=== PATIENT | female | born 2000 | race Hispanic/Latino ===

== ENCOUNTER 2019-08-25 01:39 | Outpatient (CLI) | payer MEDICAID ==
[2019-08-25 03:23] VITALS: BP 114/65
--- NOTE | 2019-08-25 04:01 | Progress Note ---
Assessment and Plan - Patient Problems (1) Prolonged latent phase of labor Current Visit: Yes Status: Acute Plan to address problem: -keep scheduled apt -labor precautions given -schedule IOL -d/c home at this time Subjective - Subjective Date of service: 08/25/19 Principal diagnosis: term r/o labor Interval history: Pt presents c/o sharp pelvic pain unsure if she is christen or not. cx is unchanged from last office visit at /-2 post. She is having occasional contractions. Patient reports: movement normal, contractions, no loss of fluid, no vaginal bleeding Objective - Vital Signs Vital Signs: Vital Signs - 12hr 08/25/19 08/25/19 08/25/19 02:08 02:23 02:50 Temperature 97.8 F Pulse Rate 78 78 88 Respiratory 16 Rate Blood Pressure 109/59 Blood Pressure 109/59 [Left] O2 Sat by Pulse 98 95 Oximetry 08/25/19 08/25/19 08/25/19 02:55 03:00 03:05 Temperature Pulse Rate 77 81 84 Respiratory Rate Blood Pressure Blood Pressure [Left] O2 Sat by Pulse 97 97 99 Oximetry 08/25/19 08/25/19 08/25/19 03:10 03:15 03:20 Temperature Pulse Rate 88 82 79 Respiratory Rate Blood Pressure Blood Pressure [Left] O2 Sat by Pulse 97 97 95 Oximetry 08/25/19 08/25/19 08/25/19 03:21 03:25 03:30 Temperature Pulse Rate 80 85 81 Respiratory Rate Blood Pressure 114/65 Blood Pressure [Left] O2 Sat by Pulse 97 97 Oximetry 08/25/19 08/25/19 08/25/19 03:35 03:40 03:45 Temperature Pulse Rate 72 78 88 Respiratory Rate Blood Pressure Blood Pressure [Left] O2 Sat by Pulse 97 97 100 Oximetry - Exam FHR: category 1 Cervical Dilatation: 4 (cx is very posterior but soft) Cervical Effacement Percentage: 70 station: -2
== END 2019-08-25 04:05 | disposition home or self-care (01) ==
LOC: TRG 01:39
PROVIDERS: ATTEND Obstetrics & Gynecology
DX: O62.9 Abnormality of forces of labor, unspecified (principal); Z3A.40 40 weeks gestation of pregnancy
CPT/HCPCS: 59025

== ENCOUNTER 2019-08-26 20:38 | Inpatient (IN) | payer MEDICAID ==
[2019-08-26] MEDS ORDERED: BRETHINE SUB-Q PRN (21:20)
[2019-08-26] MEDS ORDERED: MINERAL OIL PO PRN (21:20)
[2019-08-26] MEDS ORDERED: AMPICILLIN/NS 2 GM/100 ML 2 GM/100 ML BAG IV ONE (21:20)
[2019-08-26] MEDS ORDERED: ZOFRAN IV PRN (21:20)
[2019-08-26] MEDS ORDERED: XYLOCAINE 2% INFILTRATI ONE (21:20)
[2019-08-26] MEDS ORDERED: AMBIEN PO PRN (21:22)
--- NOTE | 2019-08-26 21:28 | History and Physical Report ---
<JUAN WATTS Roge - Last Filed: 08/26/19 21:23> History of Present Illness Date of examination: 08/26/19 Date of admission: 08/26/19 20:38 Chief complaint: Pt here for IOL History of present illness: EDC Calculations by LMP: 08/24/2019 Past History : 1 Term Births: 0 Premature Births: 0 Living Children: 0 Para: 0 Mult. Births: 0 Prev : 0 Aborta: 0 Elect. Ab: 0 Spont. Ab: 0 Ectopics: 0 Risk Factors: Smoked Tobacco Use: Former smoker Smokeless Tobacco Use: Never Passive smoke exposure: no Drug use: no HIV high-risk behavior: no Alcohol use: no Exercise: no Seatbelt use: 100 % Dietary Counseling: pn yes Past Medical History: asthma since childhood; uses albuterol inhaler Asthma Past Surgical History: negative Past Medical History Anesthesia Complications: negative Anemia: negative Autoimmune Disorder: negative Bleeding Disorder: negative Blood Transfusions: negative Breast Disease: negative Diabetes: negative Heart Disease: negative Hypertension: negative Hepatitis/Liver Disease: negative Kidney Disease/UTI: negative Neurologic/Epilepsy/Migraines: negative Phlebitis/Varicosities: negative Psychiatric: negative Pulmonary Disease/Asthma: negative Thyroid Disease: negative Hospitalizations: negative Surgery (Non-medical assistant ob gyn): negative Abnormal PAP: negative LEDY Exposure: negative Infertility: negative Uterine Anomaly: negative Uterine Surgery (not C/S): negative Other Gynecologic Problems: negative Medical History Comments: asthma: since childhood Family Hx: dad: HTN paternal grandmother: stroke, HTN maternal grandmother: breast Ca Social Hx: works as stylist Infection History Hx of STD: HSV HIV Risk Eval: no Hepatitis B Risk Eval: low risk Personal hx. of genital herpes: yes Rash, Viral, or Febrile illness since last LMP? no Varicella/Chicken Pox Status: Previous Disease TB Risk: no Genetic History Congenital Heart Defect: Mom: no Dad: no Jihan Disease: Mom: no Dad: no Thalassemia Mom: no Dad: no Neural Tube Defect Mom: no Dad: no Down's Syndrome Mom: no Dad: no Robert-Sachs Mom: no Dad: no Sickle Cell Disease/Trait Mom: no Dad: no Hemophilia Mom: no Dad: no Muscular Dystrophy Mom: no Dad: no Cystic Fibrosis Mom: no Dad: no [place] Chorea Mom: no Dad: no Mental Retardation Mom: no Dad: no Fragile X Mom: no Dad: no Other Genetic/Chromosomal Disorder Mom: no Dad: no Child w/other defect Mom: no Dad: no Enviromental Exposures Xray Exposure: no Medication, drug, or alcohol use since LMP: no Chemical/Other Exposure: no Exposure to Cat Liter: no Hx of Parvovirus (Fifth Disease): no Occupational Exposure to Children: none Active Medications: None Current Allergies (reviewed today): No known allergies Past History Past Medical History: other (s) Past Surgical History: other (s) GROUNDSKEEPER SUPERVISOR History: other (see HPI) Family/Genetic History: other (see HPI) Social history: no significant social history - Obstetrical History Expected Date of Delivery: 08/24/19 Actual Gestation: 40 Week(s) 2 Day(s) : 1 Para: 0 Hx # Term Pregnancies: 0 Number of Pregnancies: 0 Spontaneous Abortions: 0 Induced : 0 Number of Living Children: 0 Medications and Allergies Allergies Allergy/AdvReac Type Severity Reaction Status Date / Time No Known Allergies Allergy Verified 08/25/19 02:25 Review of Systems All systems: negative Results All other labs normal. Assessment and Plan 19y/o here for IOL, GBS +. Plan for low dose pitocin tonight. Admission orders in EMR. EFRAIN Escobedo called and reviewed orders, All questions addressed. - Patient Problems (1) 40 weeks gestation of Current Visit: Yes Status: Acute (2) GBS (group B Streptococcus carrier), +RV culture, currently Current Visit: Yes Status: Acute Plan to address problem: Ampicillin q4hr when in active labor (3) Rh negative status during Current Visit: Yes Status: Acute Qualifiers: Trimester: third trimester Qualified Code(s): O26.893 - Other specified related conditions, third trimester; Z67.91 - Unspecified blood type, Rh negative Plan to address problem: Rhogam workup after delivery <LAMONTE ANSARI - Last Filed: 08/27/19 05:37> History of Present Illness Date of admission: 08/26/19 20:38 Medications and Allergies Active Meds: Active Medications Ephedrine Sulfate (Ephedrine Sulfate) 10 mg IV Q2M PRN PRN Reason: Hypotension Oxytocin/Sodium Chloride (Pitocin/Ns 20 Unit/1000ml Drip) 20 units in 1,000 mls @ 125 mls/hr IV DIRECT HAMZAH Oxytocin/Sodium Chloride (Pitocin/Ns 30 Unit/500ml) 30 units in 500 mls @ 1 mls/hr IV TITR HAMZAH; Protocol Last Titration: 08/27/19 04:54 Dose: 1 milliunits/min, 1 mls/hr Documented by: Oxytocin/Sodium Chloride (Pitocin/Ns 30 Unit/500ml) 30 units in 500 mls @ 4 m ls/hr IV TITR HAMZAH; Protocol Lactated Ringer's (Lactated Ringers) 1,000 mls @ 125 mls/hr IV DIRECT HAMZAH Last Admin: 08/27/19 03:58 Dose: 125 mls/hr Documented by: Ampicillin Sodium (Ampicillin/Ns 1 Gm/50 Ml) 1 gm in 50 mls @ 100 mls/hr IV Q4HR HAMZAH; Protocol Last Admin: 08/27/19 03:58 Dose: 100 mls/hr Documented by: Mineral Oil (Mineral Oil) 30 ml PO QHS PRN PRN Reason: Constipation Ondansetron HCl (Zofran) 4 mg IV Q8H PRN PRN Reason: Nausea And Vomiting Terbutaline Sulfate (Brethine) 0.25 mg SUB-Q ONCE PRN PRN Reason: Hyperstimulation/Hypertonicity Zolpidem Tartrate (Ambien) 10 mg PO QHS PRN PRN Reason: Insomnia - Vital Signs Vital signs: Vital Signs Pulse BP 86 124/77 08/26/19 21:29 08/26/19 21:29 Temp Pulse Resp BP Pulse Ox 98 F 65 18 111/61 08/27/19 04:00 08/27/19 04:01 08/27/19 04:00 08/27/19 04:01 - Physical Exam Breasts: Positive: deferred Cardiovascular: Regular rate, Normal S1, Normal S2 Lungs: Positive: Normal air movement Abdomen: Positive: normal appearance, soft, normal bowel sounds. Negative: distention, tenderness Genitourinary (Female): Positive: normal perenium Vulva: both: normal Vagina: Positive: normal moisture. Negative: discharge Cervix: Negative: lesion, discharge Uterus: Positive: normal size, normal contour Adnexa: both: normal Anus/Rectum: Positive: normal perianal skin, heme negative. Negative: rectal mass, hemorrhoids Extremities: Positive: normal Deep Tendon Reflex Grade: Normal +2 - Obstetrical FHR: category 1 Uterine Contraction Monitor Mode: External Cervical Dilatation: 4 (per RN on arrival) Cervical Effacement Percentage: 60 station: -1 Uterine Contraction Pattern: Irregular Uterine Tone Measurement Phase: Resting Uterine Contraction Intensity: Mild Results Result Diagrams: 08/26/19 22:19 Abnormal lab results 08/26/19 Range/Units 22:19 WBC 12.6 H (4.5-11.0) K/mm3 MCHC 35 H (30-34) % All other labs normal.
[2019-08-26] MEDS ORDERED: PITOCin/NS 30 UNIT/500ML 30 UNITS/500 ML BAG IV SCH (22:00)
[2019-08-26] MEDS ORDERED: PITOCin/NS 20 UNIT/1000ML DRIP 20 UNITS/1,000 ML BAG IV SCH (22:00)
[2019-08-26 22:37] LABS: Hematocrit 36.9 % (30.3-42.9); Hemoglobin 12.8 gm/dl (10.1-14.3); Mean Corpuscular HGB Conc 35 % (30-34); Mean Corpuscular Volume 91 fl (79-97); Platelet Count 152 K/mm3 (140-440); Red Blood Count 4.07 M/mm3 (3.65-5.03); Red Cell Distribution Width 14.2 % (13.2-15.2)
[2019-08-26] MEDS: LACTATED RINGERS 1,000 ML IV SCH (23:32)
[2019-08-27] MEDS: AMPICILLIN/NS 1 GM/50 ML 1 GM/50 ML BAG IV SCH ×2 (03:58→08:03)
[2019-08-27] MEDS: LACTATED RINGERS 1,000 ML IV SCH (03:58)
--- NOTE | 2019-08-27 05:36 | Progress Note ---
Assessment and Plan Pt c/o hip pain Reports good FM SVE 5,70,0 ISE applied fluid slight staining will monitor. Bolus for epidural Increase pitocin per protocol All questions addressed. Subjective - Subjective Date of service: 08/27/19 (pt c/o hip pain) Principal diagnosis: IUP @ 40w3d Patient reports: movement normal Objective - Vital Signs Vital Signs: Vital Signs - 12hr 08/26/19 08/26/19 08/27/19 21:29 21:37 04:00 Temperature 98.3 F 98 F Pulse Rate 86 86 Respiratory 18 18 Rate Blood Pressure 124/77 Blood Pressure 124/77 [Left] 08/27/19 04:01 Temperature Pulse Rate 65 Respiratory Rate Blood Pressure 111/61 Blood Pressure [Left] - Exam Breasts: deferred Cardiovascular: Regular rate Lungs: Normal air movement Abdomen: Present: normal appearance, soft. Absent: distention, tenderness Uterus: Present: normal FHR: auscultation normal, category 1 Uterine Contraction Monitor Mode: Internal Cervical Dilatation: 5 (ISE applied) Cervical Effacement Percentage: 70 station: 0 Uterine Contraction Pattern: Irregular Uterine Tone Measurement Phase: Resting Uterine Contraction Intensity: Mild Extremities: normal Deep Tendon Reflex Grade: Normal +2 - Labs Labs: Abnormal Labs 08/26/19 22:19 WBC 12.6 H MCHC 35 H Laboratory Results - last 24 hr 08/26/19 08/26/19 08/26/19 22:19 22:19 22:20 WBC 12.6 H RBC 4.07 Hgb 12.8 Hct 36.9 MCV 91 MCH 32 MCHC 35 H RDW 14.2 Plt Count 152 Syphilis IgG Antibody Non-reactive Blood Type O NEGATIVE Antibody Screen Negative
[2019-08-27] MEDS ORDERED: PITOCin/NS 30 UNIT/500ML 30 UNITS/500 ML BAG IV SCH ×2 (06:00)
[2019-08-27] MEDS ORDERED: MARCAINE 0.25% INFILTRATI ONE (06:45)
[2019-08-27] MEDS ORDERED: NALOXONE IV PRN (06:53)
--- NOTE | 2019-08-27 06:55 | Anesthesia Consultation ---
Anesthesia Consult and Med Hx Date of service: 08/27/19 - Airway Anesthetic Teeth Evaluation: Good ROM Head & Neck: Adequate Mental/Hyoid Distance: Adequate Mallampati Class: Class II Intubation Access Assessment: Probably Good - Pulmonary Exam CTA: Yes - Cardiac Exam Cardiac Exam: RRR - Pre-Operative Health Status ASA Pre-Surgery Classification: ASA2 Proposed Anesthetic Plan: Epidural - Pulmonary Hx Smoking: No Hx Asthma: Yes (last attach many years ago) Hx Respiratory Symptoms: No SOB: No COPD: No Hx Pneumonia: No Hx Sleep Apnea: No - Cardiovascular System Hx Hypertension: No Hx Coronary Artery Disease: No Hx Heart Attack/AMI: No Hx Angina: No Hx Percutaneous Transluminal Coronary Angioplasty (PTCA): No Hx Cardia Arrhythmia: No Hx Pacemaker: No Hx Internal Defibrillator: No Hx Valvular Heart Disease: No Hx Heart Murmur: No Hx Peripheral Vascular Disease: No - Central Nervous System Hx Neuromuscular Disorder: No Hx Seizures: No CVA: No Hx Back Pain: No Hx Psychiatric Problems: No - Gastrointestinal Hx Ulcer: No Hx Gastroesophageal Reflux Disease: No - Endocrine Hx Renal Disease: No Hx End Stage Renal Disease: No Hx Cirrhosis: No Hx Liver Disease: No Hx Insulin Dependent Diabetes: No Hx Non-Insulin Dependent Diabetes: No Hx Thyroid Disease: No Hx Hypothyroidism: No Hx Hyperthyroidism: No - Hematic Hx Anemia: No Hx Sickle Cell Disease: No - Other Systems Hx Alcohol Use: No Hx Substance Use: No Hx Cancer: No Hx Obesity: No
[2019-08-27] MEDS ORDERED: fentaNYL-BUPIV 2 MCG/ML-0.125% 200 MCG/100 ML BAG EPIDURAL SCH (07:00)
[2019-08-27] MEDS ORDERED: PEPCID IV ONE (07:30)
[2019-08-27] MEDS ORDERED: CYTOTEC PR SCH (11:30)
[2019-08-27] MEDS ORDERED: CYTOTEC ONE ×2 (11:37→11:42)
[2019-08-27] MEDS ORDERED: NACL 0.9% 500 ML 500 ML IV SCH ×2 (11:47→16:00)
[2019-08-27] MEDS ORDERED: DULCOLAX PR PRN (12:22)
[2019-08-27] MEDS ORDERED: PHENERGAN PO PRN (12:22)
[2019-08-27] MEDS ORDERED: BENADRYL PO PRN (12:22)
[2019-08-27] MEDS ORDERED: TYLENOL PO PRN (12:22)
[2019-08-27] MEDS ORDERED: MILK OF MAGNESIA PO PRN (12:22)
[2019-08-27] MEDS ORDERED: LANSINOH TP PRN (12:22)
[2019-08-27] MEDS ORDERED: TUCKS PAD TP PRN (12:22)
--- NOTE | 2019-08-27 12:29 | Procedure Note ---
OB Delivery Note - Delivery Date of Delivery: 08/27/19 Recreation Assistant: LAMONTE ANSARI Estimated blood loss: other (1200) - Vaginal Delivery presentation: vertex Delivery position: OA Intrapartum events: hemorrhage (manual removal of placenta) Delivery induction: oxytocin Delivery augmentation: pitocin Delivery monitor: external uterine, internal FHT Route of delivery: Delivery placenta: manual, uterine exploration Delivery cord: 3 umbilical vessels Episiotomy: none Delivery laceration: none Anesthesia: epidural Delivery comments: live born female over intact perineum. Baby to mom's abdomen skin to skin. Delayed cord clamping. Noted large gush of blood prior to clamping cord. Pitocin IVFs.Cord blood obtained.. Again mod bleeding noted w/o release of placenta. Uterus explored. Fundal placenta manual removal with difficulty. Bleeding continued during removal. notified. Stat H&H drawn. Type & hold 2 units. Placenta removed Noted to be in 2 pieces Appears to be complete. Cytotec 1000mcg placed MS. Perineum, vagina, cervix intact. uterus explored again. Hemostasis achieved. Pt symptomatic BP 80/40, nausea, pale. Rutherford placed. Fundus firm, minimal lochia. Explained situation of PPH to pt and family All questions addressed. , 8/9, Wgt 8-4. EBL 1200. Pt reassessed FF, @ umb, Lochia small. Pt is alert and oriented, BP 118/60 Asking to hold NB. Will continue observation in LDR. - Infant A at 1 minute: 8 at 5 minutes: 9 Infant Gender: Female (wgt 8-4)
[2019-08-27 12:32] LABS: Hemoglobin 11.8 gm/dl (10.1-14.3)
[2019-08-27] MEDS ORDERED: SODIUM CHLORIDE FLUSH SYRINGE 10 ML IV SCH (13:00)
[2019-08-27] MEDS ORDERED: METHERGINE PO SCH (14:00)
[2019-08-27] MEDS ORDERED: BENADRYL PO NR (15:08)
[2019-08-27] MEDS ORDERED: TYLENOL PO ONE (15:08)
--- NOTE | 2019-08-27 15:11 | Event Note ---
Date: 08/27/19 (call from RN) Pt OOB to toilet fainted. Will move forward with transfusion of 2 units PRC. made aware
[2019-08-27 16:07] LABS: Hematocrit 25.7 % (30.3-42.9); Hemoglobin 8.8 gm/dl (10.1-14.3)
[2019-08-27] MEDS: FEOSOL PO SCH (18:20)
[2019-08-27] MEDS: IBUPROFEN PO SCH (18:20)
[2019-08-27] MEDS ORDERED: NORCO 5/325 PO ONE (20:00)
[2019-08-27] MEDS ORDERED: NORCO 5/325 PO PRN (20:13)
--- NOTE | 2019-08-27 20:22 | Event Note ---
Date: 08/27/19 (called to come see pt by RN) There were 8-10 visitors in pts room on my arrival I did ask that they leave for the evening. Very cooperative. Pt states she has a lot of pressure in her rectum and that her lower abdomen "really hurts". Pt examined no evidence of hematoma noted on vaginal floor or harris. Bleeding slow trickle resolved with massage FF below umb off set to the right. Reading 2 tabs po Q6hr prn pain. Will continue close observation. Blood is transfusing. All questions addressed.
[2019-08-28 03:52] LABS: Hematocrit 29.4 % (30.3-42.9); Hemoglobin 10.1 gm/dl (10.1-14.3)
[2019-08-28] MEDS: FEOSOL PO SCH ×4 (05:44→22:02)
[2019-08-28] MEDS: IBUPROFEN PO SCH ×4 (05:44→22:04)
[2019-08-28] MEDS ORDERED: BOOSTRIX IM ONE (06:00)
--- NOTE | 2019-08-28 08:15 | Progress Note ---
Assessment and Plan - Patient Problems (1) Rh negative status during Current Visit: Yes Status: Acute Qualifiers: Trimester: third trimester Qualified Code(s): O26.893 - Other specified related conditions, third trimester; Z67.91 - Unspecified blood type, Rh negative (2) hemorrhage Current Visit: Yes Status: Acute Plan to address problem: 2 PRBCs transfused on 08/27/19. Post transfusion H/H 09/02. VSS. Pt is ambulating without difficulty. (3) Spontaneous vaginal delivery Current Visit: Yes Status: Acute Plan to address problem: Pt resting in bed quietly. Reports lower ABD and back pain managed with pain med. VSSAF. Fundus firm at U. Moderate vaginal bleeding. Bottle feeding. Baby O negative; no Rhogam needed PP. P: Continue PP pathway. Subjective - Subjective Date of service: 08/28/19 Principal diagnosis: Day#1 Interval history: EDC Calculations by LMP: 08/24/2019 Past History : 1 Term Births: 0 Premature Births: 0 Living Children: 0 Para: 0 Mult. Births: 0 Prev : 0 Aborta: 0 Elect. Ab: 0 Spont. Ab: 0 Ectopics: 0 Risk Factors: Smoked Tobacco Use: Former smoker Smokeless Tobacco Use: Never Passive smoke exposure: no Drug use: no HIV high-risk behavior: no Alcohol use: no Exercise: no Seatbelt use: 100 % Dietary Counseling: pn yes Past Medical History: asthma since childhood; uses albuterol inhaler Asthma Past Surgical History: negative Past Medical History Anesthesia Complications: negative Anemia: negative Autoimmune Disorder: negative Bleeding Disorder: negative Blood Transfusions: negative Breast Disease: negative Diabetes: negative Heart Disease: negative Hypertension: negative Hepatitis/Liver Disease: negative Kidney Disease/UTI: negative Neurologic/Epilepsy/Migraines: negative Phlebitis/Varicosities: negative Psychiatric: negative Pulmonary Disease/Asthma: negative Thyroid Disease: negative Hospitalizations: negative 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 of genital herpes: yes Rash, Viral, or Febrile illness since last LMP? no Varicella/Chicken Pox Status: Previous Disease TB Risk: no Genetic History Congenital Heart Defect: Mom: no Dad: no Jihan Disease: Mom: no Dad: no Thalassemia Mom: no Dad: no Neural Tube Defect Mom: no Dad: no Down's Syndrome Mom: no Dad: no Robert-Sachs Mom: no Dad: no Sickle Cell Disease/Trait Mom: no Dad: no Hemophilia Mom: no Dad: no Muscular Dystrophy Mom: no Dad: no Cystic Fibrosis Mom: no Dad: no [place] Chorea Mom: no Dad: no Mental Retardation Mom: no Dad: no Fragile X Mom: no Dad: no Other Genetic/Chromosomal Disorder Mom: no Dad: no Child w/other defect Mom: no Dad: no Enviromental Exposures Xray Exposure: no Medication, drug, or alcohol use since LMP: no Chemical/Other Exposure: no Exposure to Cat Liter: no Hx of Parvovirus (Fifth Disease): no Occupational Exposure to Children: none Active Medications: None Current Allergies (reviewed today): No known allergies Patient reports: appetite normal, voiding normally, pain well controlled, ambulating normally [place]: doing well Objective - Vital Signs Latest vital signs: Vital Signs Temp Pulse Resp BP BP Pulse Ox 08/27/19 23:52 98.0 F 88 20 123/72 08/27/19 22:21 98.1 F 94 H 18 120/67 97 08/27/19 21:51 98.4 F 87 18 114/68 96 08/27/19 21:21 97.8 F 84 20 114/61 98 08/27/19 21:06 97.7 F 72 20 117/72 97 08/27/19 20:44 98.2 F 82 18 125/76 97 08/27/19 20:10 98.0 F 79 18 118/70 99 08/27/19 19:40 97.9 F 81 18 115/75 98 08/27/19 19:10 98.0 F 93 H 18 114/60 08/27/19 18:40 97.8 F 111 H 18 104/64 97 08/27/19 18:10 97.6 F 103 H 18 115/56 97 08/27/19 17:45 97.9 F 81 18 122/75 08/27/19 17:40 98 F 96 H 18 109/70 08/27/19 17:25 98.2 F 87 18 111/66 99 08/27/19 17:22 98.2 F 87 18 111/66 99 08/27/19 16:02 98.4 F 79 18 119/49 99 08/27/19 15:32 80 113/61 08/27/19 15:31 85 100 08/27/19 15:27 73 109/58 08/27/19 15:26 77 100 08/27/19 15:22 80 107/57 08/27/19 15:21 77 100 08/27/19 15:17 80 108/61 08/27/19 15:16 72 100 08/27/19 15:12 75 109/62 08/27/19 15:11 69 100 08/27/19 15:07 70 110/62 08/27/19 15:06 83 100 08/27/19 15:02 75 108/58 08/27/19 15:01 77 100 08/27/19 14:57 76 109/57 08/27/19 14:56 77 100 08/27/19 14:52 73 110/61 08/27/19 14:51 73 100 08/27/19 14:50 74 117/58 08/27/19 14:32 102 H 109/73 08/27/19 14:31 99 H 98 08/27/19 14:27 88 115/73 08/27/19 14:26 86 98 08/27/19 14:22 96 H 118/66 08/27/19 14:21 104 H 100 08/27/19 14:17 94 H 114/62 08/27/19 14:16 92 H 98 08/27/19 14:12 88 104/62 08/27/19 14:11 86 98 08/27/19 14:07 91 H 107/66 08/27/19 14:06 95 H 99 08/27/19 14:02 88 109/66 08/27/19 14:01 84 99 08/27/19 13:57 88 111/66 08/27/19 13:56 88 100 08/27/19 13:52 81 109/64 08/27/19 13:51 90 100 08/27/19 13:47 88 113/67 08/27/19 13:46 93 H 100 08/27/19 13:42 82 111/68 08/27/19 13:41 81 100 08/27/19 13:37 77 111/63 08/27/19 13:36 83 99 08/27/19 13:32 77 105/61 08/27/19 13:31 81 100 08/27/19 13:27 75 115/64 08/27/19 13:26 75 100 08/27/19 13:22 75 117/67 08/27/19 13:21 78 100 08/27/19 13:17 79 115/70 08/27/19 13:16 78 100 08/27/19 13:12 88 118/74 08/27/19 13:11 85 100 08/27/19 13:07 91 H 114/68 08/27/19 13:06 94 H 100 08/27/19 13:02 86 120/66 08/27/19 13:01 85 100 08/27/19 12:57 79 117/66 08/27/19 12:56 80 100 08/27/19 12:52 83 111/63 08/27/19 12:51 86 100 08/27/19 12:47 85 122/63 08/27/19 12:46 78 100 08/27/19 12:42 79 116/67 08/27/19 12:41 88 100 08/27/19 12:37 111 H 118/68 08/27/19 12:36 105 H 100 08/27/19 12:32 114 H 115/67 08/27/19 12:31 103 H 100 08/27/19 12:27 95 H 119/66 08/27/19 12:26 88 100 08/27/19 12:22 99 H 116/63 08/27/19 12:21 99 H 100 08/27/19 12:17 85 110/63 08/27/19 12:16 87 100 08/27/19 12:12 91 H 111/67 08/27/19 12:11 93 H 100 08/27/19 12:06 134 H 100 08/27/19 12:01 136 H 100 08/27/19 11:57 86 108/66 08/27/19 11:55 114 H 100 08/27/19 11:52 95 H 90/61 08/27/19 11:50 89 100 08/27/19 11:47 93 H 85/52 08/27/19 11:45 122 H 99 08/27/19 11:42 133 H 91/55 08/27/19 11:40 114 H 98 08/27/19 11:38 102 H 77/45 08/27/19 11:35 143 H 95 08/27/19 11:30 144 H 96 08/27/19 11:25 127 H 96 08/27/19 11:20 118 H 97 08/27/19 11:15 93 H 96 08/27/19 11:10 88 98 08/27/19 11:06 93 H 91/50 08/27/19 11:05 90 97 08/27/19 11:00 86 98 08/27/19 10:55 81 98 08/27/19 10:50 75 98 08/27/19 10:45 83 97 08/27/19 10:40 83 97 08/27/19 10:36 92 H 132/72 08/27/19 10:35 80 97 08/27/19 10:30 71 97 08/27/19 10:25 77 98 08/27/19 10:20 76 97 08/27/19 10:15 72 98 08/27/19 10:10 82 96 08/27/19 10:05 77 119/65 98 08/27/19 10:00 74 97 08/27/19 09:55 75 97 08/27/19 09:50 78 97 08/27/19 09:45 79 97 08/27/19 09:42 70 120/71 08/27/19 09:40 72 96 08/27/19 09:35 82 98 08/27/19 09:34 77 124/78 08/27/19 09:30 78 97 08/27/19 09:25 78 98 08/27/19 09:20 73 98 08/27/19 09:15 74 97 08/27/19 09:10 72 97 08/27/19 09:05 73 117/69 96 08/27/19 09:00 69 97 08/27/19 08:55 74 98 08/27/19 08:50 70 97 08/27/19 08:45 73 98 08/27/19 08:40 76 97 08/27/19 08:36 79 129/73 08/27/19 08:35 69 97 08/27/19 08:30 75 98 08/27/19 08:25 77 97 08/27/19 08:20 75 97 08/27/19 08:15 83 97 08/27/19 08:10 77 97 Intake and Output 08/27/19 08/28/19 08/28/19 23:59 07:59 15:59 Intake Total 980 540 Output Total 800 600 Balance 180 -60 Intake: Oral 480 240 Intake, Free Water 300 Blood Product 500 Leukoreduced Red Blood 250 Cells Unit [id number] Leukoreduced Red Blood 250 Cells Unit [id number] Output: Urine 800 600 Indwelling Catheter 800 Void 600 Other: Total, Intake Amount 480 240 Total, Output Amount 800 600 # Voids Void 1 1 - Exam Cardiovascular: Present: Regular rate Lungs: Present: Normal air movement Abdomen: Present: normal appearance, soft Uterus: Present: normal, firm, fundal height at umbilicus Extremities: Present: normal Deep Tendon Reflex Grade: Normal +2 - Labs Labs: Abnormal lab results 08/26/19 08/27/19 08/28/19 Range/Units 22:19 15:59 03:34 Hgb 8.8 L D (10.1-14.3) gm/dl Hct 25.7 L D 29.4 L (30.3-42.9) % Crossmatch See Detail
[2019-08-28] MEDS: COLACE PO SCH ×2 (10:00→22:02)
[2019-08-28] MEDS: PRENATAL VITAMIN PO SCH (10:00)
[2019-08-28] MEDS ORDERED: M-M-R II VACCINE SUB-Q ONE (12:22)
[2019-08-29] MEDS: IBUPROFEN PO SCH ×2 (06:02→13:00)
[2019-08-29 09:42] VITALS: BP 94/58
--- NOTE | 2019-08-29 09:55 | Discharge Summary ---
Providers - Providers Date of Admission: 08/26/19 20:38 Date of discharge: 08/29/19 Attending physician: LISSET VENTURA Primary care physician: LISSET VENTURA Hospitalization Reason for admission: induction of labor Delivery: , other (post hemorrhage) Procedure details: see delivery note Episiotomy: none Laceration: none Other procedures: other (blood transfusion of 2 unites) complications: transfusion, other (hemorrhage) Discharge diagnosis: IUP at term delivered Hospital course: Pt admitted and underwent IOL. Delivery was complicated by pph for which pt had 2 units of blood. She is doing well today. No headaches, dizziness, chest pain or SOB. She desires d/c to home today. Condition at discharge: Good Disposition: DC-01 TO HOME OR SELFCARE - Discharge Diagnoses (1) hemorrhage Status: Acute (2) Rh negative status during Status: Acute Qualifiers: Trimester: third trimester Qualified Code(s): O26.893 - Other specified related conditions, third trimester; Z67.91 - Unspecified blood type, Rh negative (3) Single live Status: Acute Plan - Provider Discharge Summary Additional instructions: [] Smoking cessation referral if applicable(refer to patient education folder for contact #) [] Refer to [facility] Booklet Call your doctor immediately for: * Fever > 100.5 * Heavy vaginal bleeding ( >1 pad per hour) * Severe persistent headache * Shortness of breath * Reddened, hot, painful area to leg or breast * Drainage or odor from incision. * Keep incision clean and dry at all times and follow doctor's instructions regarding bathing/showering - Follow up plan Follow up: LISSET VENTURA MD [Primary Care Provider] - 7 Days
[2019-08-29] MEDS: FEOSOL PO SCH (12:16)
[2019-08-29] MEDS: COLACE PO SCH (12:16)
[2019-08-29] MEDS: PRENATAL VITAMIN PO SCH (12:17)
== END 2019-08-29 15:10 | disposition home or self-care (01) | DRG 774 ==
LOC: LD 20:38 → OB 08-27 15:54
PROVIDERS: ADMIT Obstetrics & Gynecology; ATTEND Obstetrics & Gynecology
PROC: 10E0XZZ Delivery of Products of Conception, External Approach (ICD-10-PCS; principal; 2019-08-27)
PROC: 3E0234Z Introduction of Serum, Toxoid and Vaccine into Muscle, Percutaneous Approach (ICD-10-PCS; 2019-08-27)
PROC: 30233N1 Transfusion of Nonautologous Red Blood Cells into Peripheral Vein, Percutaneous Approach (ICD-10-PCS; 2019-08-27)
PROC: 3E033VJ Introduction of Other Hormone into Peripheral Vein, Percutaneous Approach (ICD-10-PCS; 2019-08-27)
PROC: 3E0R3BZ Introduction of Anesthetic Agent into Spinal Canal, Percutaneous Approach (ICD-10-PCS; 2019-08-27)
PROC: 00HU33Z Insertion of Infusion Device into Spinal Canal, Percutaneous Approach (ICD-10-PCS; 2019-08-27)
DX: O99.824 Streptococcus B carrier state complicating childbirth (principal); O72.1 Other immediate postpartum hemorrhage; O26.893 Other specified pregnancy related conditions, third trimester; Z3A.40 40 weeks gestation of pregnancy; Z37.0 Single live birth; Z67.91 Unspecified blood type, Rh negative; Z23 Encounter for immunization; Z87.891 Personal history of nicotine dependence; Z82.49 Family history of ischemic heart disease and other diseases of the circulatory system; Z82.3 Family history of stroke; Z80.3 Family history of malignant neoplasm of breast; O99.52 Diseases of the respiratory system complicating childbirth; J45.909 Unspecified asthma, uncomplicated
CPT/HCPCS: 36415; 85014; 85018; 85027; 86592; 86850; 86900; 86901; 86920; 88307; G0378; J0290; J2590; J7040; J7120; P9016

== ENCOUNTER 2021-08-23 13:26 | Outpatient (CLI) | payer MEDICAID ==
[2021-08-23 15:26] VITALS: BP 102/59
[2021-08-23] MEDS ORDERED: LACTATED RINGERS 1,000 ML IV ONE (16:00)
[2021-08-23 17:03] LABS: Amorphous Crystals,Urine Few; Bilirubin,Urine NEG (Negative); Blood,Urine NEG (Negative); Color,Urine Yellow (Yellow); Mucus,Urine FEW /HPF; Urobilinogen,Urine < 2.0 mg/dL (<2.0)
--- NOTE | 2021-08-23 17:03 | Ultrasound Report ---
ULTRASOUND OBSTETRIC LIMITED INDICATION / CLINICAL INFORMATION: r/o abruption. TECHNIQUE: Transabdominal. COMPARISON: 08/21/2021 FINDINGS: Single live intrauterine in cephalic presentation. heart rate measures 138 bpm. Farhana l/left lateral placenta is free of the os. No lifting or separation of the placenta is seen. No retro placental collection. IMPRESSION: No significant abnormality. No evidence of placental abruption. Signer Name: Jim Fermin MD Signed: 08/23/2021 4:59 PM Workstation Name: [id number]
== END 2021-08-23 17:58 | disposition home or self-care (01) ==
LOC: TRG 13:26 → APU 14:19 → TRG 17:58
PROVIDERS: ATTEND Student in an Organized Health Care Education/Training Program
DX: Z34.93 Encounter for supervision of normal pregnancy, unspecified, third trimester (principal); Z3A.35 35 weeks gestation of pregnancy
CPT/HCPCS: 59025; 76815; 81001

== ENCOUNTER 2021-09-19 15:02 | Inpatient (IN) | payer MEDICAID ==
[2021-09-19] MEDS ORDERED: fentaNYL 100 MCG/2 ML INJ IV PRN (15:04)
[2021-09-19] MEDS ORDERED: LOPERAMIDE 2 MG CAP PO PRN (15:04)
[2021-09-19] MEDS ORDERED: TERBUTALINE 1 MG/1 ML INJ SUB-Q PRN (15:04)
[2021-09-19] MEDS ORDERED: miSOPROStol 200 MCG TAB PR PRN (15:04)
[2021-09-19] MEDS ORDERED: ACETAMINOPHEN 325 MG TAB PO PRN (15:04)
[2021-09-19] MEDS ORDERED: MINERAL OIL 30 ML ORAL LIQD PO PRN (15:04)
[2021-09-19] MEDS ORDERED: ONDANSETRON 4 MG/2 ML INJ IV PRN (15:04)
[2021-09-19] MEDS ORDERED: OXYTOCIN 10 UNIT/1 ML INJ IM PRN (15:04)
[2021-09-19] MEDS ORDERED: CARBOPROST TROMETHAMINE 250 MCG/1 ML INJ IM PRN (15:04)
[2021-09-19] MEDS ORDERED: NalbUPHINE 10 MG/1 ML INJ IV PRN (15:04)
[2021-09-19] MEDS ORDERED: METHYLERGONOVINE MALEATE 0.2 MG/ML VIAL IM PRN (15:04)
[2021-09-19] MEDS ORDERED: ePHEDrine SULFATE 50 MG/1 ML INJ IV PRN ×2 (15:04→23:43)
--- NOTE | 2021-09-19 15:12 | History and Physical Report ---
History of Present Illness Date of examination: 09/19/21 Chief complaint: Laboring @ 38+6 weeks, sent as direct admit from office. History of present illness: EDC Confirmation: 09/27/2021 Past History : 2 Term Births: 1 Premature Births: 0 Living Children: 1 Para: 1 Mult. Births: 0 Prev : 0 Prev. attempt? 0 Aborta: 0 Elect. Ab: 0 Spont. Ab: 0 Ectopics: 0 # 1 Delivery date: 08/27/2019 Weeks Gestation: 40 Delivery type: Vaginal Anesthesia type: epidural Delivery location: [facility] Infant Sex: female weight: 8.25 Comments: PPH Risk Factors: Smoked Tobacco Use: Former smoker Cigarettes: Yes Smokeless Tobacco Use: Never Counseled to quit/cut down: yes Passive smoke exposure: no Drug use: no HIV high-risk behavior: no Caffeine use: 0 drinks per day Alcohol use: no Exercise: no Seatbelt use: preg-direct care counselor % Dietary Counseling: pn yes Past Medical History: Reviewed history from 01/13/2019 and no changes required: asthma since childhood; uses albuterol inhaler Asthma Blood Transfusion - 2019 d/t PPH Past Surgical History: Reviewed history from 01/13/2019 and no changes required: negative Family History Summary: Reviewed history and no changes required: 02/09/2021 General Comments - FH: dad: HTN paternal grandmother: stroke, HTN maternal grandmother: breast Ca 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 Past Medical History Blood Transfusions: yes Abnormal PAP: negative LEDY Exposure: negative Infertility: negative Uterine Anomaly: negative Uterine Surgery (not C/S): negative Other Gynecologic Problems: negative Social Hx: works as stylist Patient is single Smoking History: Patient is a former smoker. Infection History Hx of STD: none HIV Risk Eval: no Hepatitis B Risk Eval: low risk Personal hx. of genital herpes: yes Rash, Viral, or Febrile illness since last LMP? no Varicella/Chicken Pox Status: Previous Disease TB Risk: no Genetic History Congenital Heart Defect: Mom: no Dad: no Jihan Disease: Mom: no Dad: no Thalassemia Mom: no Dad: no Neural Tube Defect Mom: no Dad: no Down's Syndrome Mom: no Dad: no Robert-Sachs Mom: no Dad: no Sickle Cell Disease/Trait Mom: no Dad: no Hemophilia Mom: no Dad: no Muscular Dystrophy Mom: no Dad: no Cystic Fibrosis Mom: no Dad: no Pike Chorea Mom: no Dad: no Mental Retardation Mom: no Dad: no Fragile X Mom: no Dad: no Other Genetic/Chromosomal Disorder Mom: no Dad: no Child w/other defect Mom: no Dad: no Enviromental Exposures Enviromental Exposures Reviewed Xray Exposure: no Medication, drug, or alcohol use since LMP: no Chemical/Other Exposure: no Exposure to Cat Liter: no Hx of Parvovirus (Fifth Disease): no Occupational Exposure to Children: none Comments: Stylist Active Medications (reviewed today): PLUS 27-1 MG ORAL TABLET ( VIT-FE FUMARATE-FA) 1 po daily Past History Past Medical History: other (see HPI) Past Surgical History: other (see HPI) RIVER CAPTAIN History: other (see HPI) Family/Genetic History: other (see HPI) Social history: no significant social history - Obstetrical History Expected Date of Delivery: 09/27/21 Actual Gestation: 38 Week(s) 6 Day(s) : 2 Para: 1 Hx # Term Pregnancies: 1 Number of Pregnancies: 0 Spontaneous Abortions: 0 Induced : 0 Number of Living Children: 1 Medications and Allergies Allergies Allergy/AdvReac Type Severity Reaction Status Date / Time No Known Allergies Allergy Verified 08/25/19 02:25 Home Medications Medication Instructions Recorded Confirmed Last Taken Type No Known Home Medications [No 08/28/19 08/28/19 Unknown History Reported Home Medications] Review of Systems All systems: negative - Physical Exam Breasts: Positive: normal Cardiovascular: Regular rate Lungs: Positive: Normal air movement Abdomen: Positive: normal appearance, soft Genitourinary (Female): Positive: normal external genitalia, normal perenium (no s/s HSV lesions) Vulva: both: normal Vagina: Positive: normal moisture Uterus: Positive: normal size Anus/Rectum: Positive: normal perianal skin Extremities: Positive: normal Deep Tendon Reflex Grade: Normal +2 - Obstetrical FHR: auscultation normal Uterine Contraction Monitor Mode: Palpation Cervical Dilatation: 5.5 Cervical Effacement Percentage: 80 station: -2 Uterine Tone Measurement Phase: Contraction Uterine Contraction Intensity: Moderate Results All other labs normal. Assessment and Plan 21 y/o @ 38+6 weeks presented to OB office today w/ c/o ctx, loose stools and nausea. SVE 5.5/80/-2, posterior, soft & cephalic. GBS +. Pelvis adequate for size of baby. Admission orders in EMR, anticipate . - Patient Problems (1) 38 weeks gestation of Status: Acute (2) Rh negative status during Status: Acute Qualifiers: Trimester: third trimester Qualified Code(s): O26.893 - Other specified related conditions, third trimester; Z67.91 - Unspecified blood type, Rh negative Plan to address problem: Rhogam work-up in period (3) GBS (group B Streptococcus carrier), +RV culture, currently Status: Acute Plan to address problem: Ampicillin q4hrs until delivery (4) Hx of hemorrhage, currently Status: Acute Plan to address problem: Methergine, Cytotec and Hemabate ordered to be on hand for delivery. (5) HSV (herpes simplex virus) infection Status: Acute Plan to address problem: no s/s of outbreak
[2021-09-19] MEDS ORDERED: LIDOCAINE (2%) 20 MG/1 ML VIAL 20 ML MDV INFILTRATI ONE (15:15)
[2021-09-19] MEDS ORDERED: AMPICILLIN/NS 2 GM/100 ML 2 GM/100 ML BAG IV ONE (16:00)
[2021-09-19] MEDS ORDERED: OXYTOCIN DRIP 30 UNITS/500 ML BAG IV SCH ×2 (16:00)
[2021-09-19 18:40] LABS: Hematocrit 35.5 % (30.3-42.9); Hemoglobin 11.8 gm/dl (10.1-14.3); Mean Corpuscular HGB Conc 33 % (30-34); Mean Corpuscular Volume 83 fl (79-97); Platelet Count 214 K/mm3 (140-440); Red Blood Count 4.29 M/mm3 (3.65-5.03); Red Cell Distribution Width 13.5 % (13.2-15.2)
[2021-09-19] MEDS: LACTATED RINGERS 1,000 ML IV SCH (19:05)
--- NOTE | 2021-09-19 21:13 | Event Note ---
Date: 09/19/21 Patient complain irregular mild contractions. Repeat cervical check revealed no cervical change. Patient has received 1 dose of IV antibiotics and we will start Pitocin augmentation.
[2021-09-19] MEDS ORDERED: NALOXONE 2 MG/2 ML INJ IV PRN (23:43)
--- NOTE | 2021-09-19 23:43 | Anesthesia Consultation ---
Anesthesia Consult and Med Hx Date of service: 09/19/21 - Airway Anesthetic Teeth Evaluation: Poor ROM Head & Neck: Adequate Mental/Hyoid Distance: Adequate Mallampati Class: Class II Intubation Access Assessment: Good - Pulmonary Exam CTA: Yes - Cardiac Exam Cardiac Exam: RRR - Pre-Operative Health Status ASA Pre-Surgery Classification: ASA2 Proposed Anesthetic Plan: Epidural - Pulmonary Hx Smoking: No (Former smoker) Hx Asthma: Yes (last attack several yr ago) Hx Respiratory Symptoms: No SOB: No COPD: No Home Oxygen Therapy: No Hx Pneumonia: No Hx Sleep Apnea: No - Cardiovascular System Hx Hypertension: No Hx Coronary Artery Disease: No Hx Heart Attack/AMI: No Hx Angina: No Hx Percutaneous Transluminal Coronary Angioplasty (PTCA): No Hx Cardia Arrhythmia: No Hx Pacemaker: No Hx Internal Defibrillator: No Hx Valvular Heart Disease: No Hx Heart Murmur: No Hx Peripheral Vascular Disease: No - Central Nervous System Hx Neuromuscular Disorder: No Hx Seizures: No CVA: No Hx Back Pain: No Hx Psychiatric Problems: No - Gastrointestinal Hx Ulcer: No Hx Gastroesophageal Reflux Disease: No - Endocrine Hx Renal Disease: No Hx End Stage Renal Disease: No Hx Cirrhosis: No Hx Liver Disease: No Hx Insulin Dependent Diabetes: No Hx Non-Insulin Dependent Diabetes: No Hx Thyroid Disease: No Hx Hypothyroidism: No Hx Hyperthyroidism: No - Hematic Hx Anemia: No Hx Sickle Cell Disease: No - Other Systems Hx Alcohol Use: No Hx Substance Use: No Hx Cancer: No Hx Obesity: No
[2021-09-19] MEDS ORDERED: fentaNYL-BUPIV 2 MCG/ML-0.125% 200 MCG/100 ML BAG EPIDURAL SCH (23:45)
[2021-09-20] MEDS: AMPICILLIN/NS 1 GM/50 ML 1 GM/50 ML BAG IV SCH ×2 (00:09)
[2021-09-20] MEDS: LACTATED RINGERS 1,000 ML IV SCH (00:11)
--- NOTE | 2021-09-20 00:14 | Progress Note ---
Labor Epidural - Labor Epidural Start Time: 23:46 Stop Time: 23:57 Performed by:: SWEETIE GIVENS Procedure: Patient is requesting a laboring epidural for laboring pain. Patient IDed, H&P reviewed, all questions and concerns were answered, and consent was signed. Timeout was performed at bedside. Patient in sitting position. Sterile prep and drape was performed. [3] ml of 1% lidocaine skin wheal at L[3]- L [4]. 18- gauge Tuohy epidural needle was advanced to loss of resistance with saline technique 8cm. Negative CSF negative blood. Epidural catheter advanced to [12] centimeters. [NEGATIVE] Aspiration [NEGATIVE] test dose. Sterile dressing applied. Patient tolerated procedure.
--- NOTE | 2021-09-20 01:34 | Procedure Note ---
OB Delivery Note - Delivery Date of Delivery: 09/20/21 Surgeon: NANNETTE ESCOBAR Estimated blood loss: other (QBL 167 cc) - Vaginal Delivery presentation: vertex Delivery position: OA Delivery augmentation: rupture of membranes, pitocin Delivery monitor: external FHT, external uterine Route of delivery: Delivery placenta: spontaneous Episiotomy: none Delivery laceration: none Anesthesia: epidural Delivery comments: of infant over intact perineum. to mother's chest for skin to skin. Cord cut and clamped. . Spontaneous delivery of placenta, intact, 3 vessels noted. Perineum and vaginal inspected, no lacerations noted. Fundus firm, minimal bleeding noted. Infant left in stable condition in the care of RN. Sponge count correct. - Infant A at 1 minute: 8 at 5 minutes: 9 Infant Gender: Female (7 pounds 6 ounces)
[2021-09-20] MEDS ORDERED: WITCH HAZEL/ GLYCERIN PAD TP PRN (04:10)
[2021-09-20] MEDS ORDERED: LANOLIN/ZINC/DIMETHICONE (LANSINOH) 7 GM TP PRN (04:10)
[2021-09-20] MEDS ORDERED: diphenhydrAMINE 25 MG CAP PO PRN (04:10)
[2021-09-20] MEDS ORDERED: MAGNESIUM HYDROXIDE (MOM) ORAL LIQD UDC PO PRN (04:10)
[2021-09-20] MEDS ORDERED: PROMETHAZINE 25 MG TAB PO PRN (04:10)
[2021-09-20] MEDS ORDERED: oxyCODONE /ACETAMINOPHEN 5-325MG TAB PO PRN (04:10)
[2021-09-20] MEDS: IBUPROFEN 600 MG TAB PO SCH ×3 (04:45→17:33)
--- NOTE | 2021-09-20 07:58 | Progress Note ---
Assessment and Plan A: 21 y.o. s/p approximately 6 hours. Doing well . P: Continue with care. Anticipate discharge home on 09/21. Subjective - Subjective Date of service: 09/20/21 Principal diagnosis: s/p approximately 6 hours Patient reports: appetite normal, voiding normally, pain well controlled, ambulating normally : doing well Objective - Vital Signs Latest vital signs: Vital Signs Temp Pulse Resp BP Pulse Ox Pulse Ox 09/20/21 05:45 18 09/20/21 04:45 20 09/20/21 04:17 98.2 F 78 18 113/68 98 98 09/20/21 03:46 98 H 98 09/20/21 03:44 92 H 93 09/20/21 03:41 78 99 09/20/21 03:36 48 L 100 09/20/21 03:31 50 L 97/56 99 09/20/21 03:26 53 L 97 09/20/21 03:21 50 L 98 09/20/21 03:16 66 98 09/20/21 03:12 57 L 97/55 09/20/21 03:11 55 L 99 09/20/21 03:06 68 98 09/20/21 03:01 61 98 09/20/21 02:56 56 L 99 09/20/21 02:52 60 102/58 09/20/21 02:51 61 99 09/20/21 02:46 61 99 09/20/21 02:41 64 97 09/20/21 02:36 52 L 98 09/20/21 02:31 64 98 09/20/21 02:26 65 98 09/20/21 02:21 66 98 09/20/21 02:16 72 98 09/20/21 02:11 66 97/54 97 09/20/21 02:06 62 97 09/20/21 02:01 65 99 09/20/21 01:56 62 97 09/20/21 01:51 66 98 09/20/21 01:46 65 98 09/20/21 01:43 59 L 93/51 09/20/21 01:41 65 97 09/20/21 01:36 67 99 09/20/21 01:31 67 97 09/20/21 01:29 63 90/54 09/20/21 01:26 60 97 09/20/21 01:21 63 99 09/20/21 01:16 61 99 09/20/21 01:13 59 L 107/64 09/20/21 01:11 63 99 09/20/21 01:06 62 99 09/20/21 01:01 63 98 09/20/21 00:59 70 100/66 09/20/21 00:56 63 99 09/20/21 00:51 75 98 09/20/21 00:46 66 99 09/20/21 00:45 64 119/67 09/20/21 00:41 68 100 09/20/21 00:38 71 93 09/20/21 00:36 65 97 09/20/21 00:31 64 97 09/20/21 00:29 66 132/72 09/20/21 00:26 59 L 99 09/20/21 00:21 67 99 09/20/21 00:19 97.6 F 17 09/20/21 00:16 69 99 09/20/21 00:13 61 119/66 09/20/21 00:11 60 98 09/20/21 00:09 77 138/69 09/20/21 00:06 61 100 09/20/21 00:03 82 91 09/20/21 00:02 72 113/74 09/20/21 00:01 71 99 09/20/21 00:00 62 117/67 09/19/21 23:58 69 115/64 09/19/21 23:56 78 99 09/19/21 23:51 70 99 09/19/21 23:50 83 93 09/19/21 23:46 75 99 09/19/21 23:44 66 117/56 09/19/21 23:41 66 99 09/19/21 23:40 65 93 09/19/21 23:35 70 98 09/19/21 23:30 77 99 09/19/21 23:25 78 99 09/19/21 23:20 88 100 09/19/21 23:15 84 99 09/19/21 23:14 85 131/86 09/19/21 23:10 69 100 09/19/21 23:05 89 98 09/19/21 23:00 63 100 09/19/21 22:55 78 99 09/19/21 22:40 72 99 09/19/21 22:35 72 98 11/15/21 22:30 67 98 09/19/21 22:25 76 98 09/19/21 22:20 76 109/65 98 09/19/21 22:15 66 98 09/19/21 22:10 74 98 09/19/21 22:05 72 98 09/19/21 22:00 85 99 09/19/21 21:55 81 98 09/19/21 21:50 81 99 09/19/21 21:45 80 99 09/19/21 21:40 77 99 09/19/21 21:35 71 99 09/19/21 21:30 82 97 09/19/21 21:25 78 99 09/19/21 21:20 83 98 09/19/21 21:15 73 98 09/19/21 21:14 80 110/67 09/19/21 21:10 82 98 09/19/21 21:06 78 93 09/19/21 21:05 93 09/19/21 20:51 83 98 09/19/21 20:46 80 98 09/19/21 20:41 79 99 09/19/21 20:36 90 99 09/19/21 20:31 80 99 09/19/21 20:26 80 97 09/19/21 20:21 86 98 09/19/21 20:16 88 98 09/19/21 20:11 67 100 09/19/21 20:06 74 98 09/19/21 20:01 77 98 09/19/21 19:56 86 98 09/19/21 19:51 76 98 09/19/21 19:46 75 98 09/19/21 19:41 76 99 09/19/21 19:36 82 99 09/19/21 19:31 84 98 09/19/21 19:26 71 99 09/19/21 19:21 86 98 09/19/21 19:16 93 H 99 09/19/21 19:14 92 H 111/70 09/19/21 19:11 81 98 09/19/21 19:07 98.2 F 20 09/19/21 19:06 82 97 09/19/21 19:01 79 98 09/19/21 18:56 82 98 09/19/21 18:51 80 98 09/19/21 18:46 80 99 09/19/21 18:45 80 115/66 09/19/21 18:41 93 H 98 09/19/21 18:36 83 98 09/19/21 18:31 93 H 97 09/19/21 18:26 84 98 09/19/21 18:21 86 97 09/19/21 18:16 90 97 09/19/21 18:12 84 114/73 09/19/21 18:11 86 98 Intake and Output 09/19/21 09/20/21 09/20/21 22:59 06:59 14:59 Intake Total 5.467 888.433 Output Total 1100 Balance 5.467 -211.567 Intake: IV 5.467 648.433 Lactated Ringers 1,000 ml 637.5 @ 125 mls/hr IV DIRECT HAMZAH Rx#:[id number] PITOCin/NS 30 UNIT/500ML 5.467 10.933 30 units In 500 ml @ 4 mls/hr IV TITR HAZMAH Rx#: [id number] Intake, Free Water 240 Output: Urine 1100 Void 1100 Other: Total, Output Amount 700 # Voids Void 1 1 Weight 160 lb Estimated Blood Loss 167 - Exam Narrative Exam: Slight swelling noted to perineum. Instructed RN to apply ice pack. Cardiovascular: Present: Regular rate Lungs: Present: Normal air movement Abdomen: Present: normal appearance, soft Vulva: both: normal Uterus: Present: normal, firm Extremities: Present: normal
--- NOTE | 2021-09-20 09:29 | Post Anesthesia Evaluation ---
- Post Anesthesia Evaluation Patient Participated: Yes Airway Patent: Yes Stable Respiratory Function: Yes Nausea/Vomiting: No Temp > 96.8F: Yes Pain Manageable: Yes Adequeate Hydration: Yes Anesthesia Complications: No Block Receding Appropriately: Yes Patient on Ventilator: No
[2021-09-20] MEDS: PRENATAL VIT27-FE FUMARATE-FOLIC ACID VIT TAB PO SCH (11:34)
[2021-09-20] MEDS: DOCUSATE SODIUM 100 MG CAP PO SCH ×2 (11:34→22:12)
[2021-09-20 19:10] LABS: Hematocrit 35.9 % (30.3-42.9); Hemoglobin 11.5 gm/dl (10.1-14.3)
[2021-09-21] MEDS: IBUPROFEN 600 MG TAB PO SCH ×2 (00:24→05:15)
--- NOTE | 2021-09-21 07:53 | Discharge Summary ---
Providers - Providers Date of Admission: 09/19/21 17:01 Date of discharge: 09/21/21 Attending physician: NANNETTE ESCOBAR 09/20/21 04:10 Consult to Plan Consultant [CONS] Routine Reason For Exam: assistance with , SNS Primary care physician: THA PATTEN MD Hospitalization Reason for admission: active labor Delivery: Episiotomy: none Laceration: none Other procedures: none complications: none Discharge diagnosis: IUP at term delivered baby: female Hospital course: S: Pt doing well. Ambulating, voiding, and passing flatus okay. O: VSS. Adequate I&O's. Fundus firm, minimal bleeding noted. A: 21 y.o. s/p . In good condition and can be discharged home. P: Discharge home with instructions. Pt to schedule visit in 4-6 weeks. Condition at discharge: Good Disposition: 01 HOME / SELF CARE / HOMELESS Plan - Provider Discharge Summary Activity: routine, no sex for 6 weeks, no heavy lifting 4 weeks, no strenuous exercise Diet: routine Instructions: routine Additional instructions: [] Smoking cessation referral if applicable(refer to patient education folder for contact #) [] Refer to [facility] Booklet Call your doctor immediately for: * Fever > 100.5 * Heavy vaginal bleeding ( >1 pad per hour) * Severe persistent headache * Shortness of breath * Reddened, hot, painful area to leg or breast * Drainage or odor from incision. * Keep incision clean and dry at all times and follow doctor's instructions regarding bathing/showering Congratulations on the of your baby girl! Thank you for allowing us to take care of you. Please schedule your visit in the office in 4-6 weeks. Should you have any question or concerns after discharge, please do not hesitate to call the office at [phone]. - Follow up plan Follow up: THA PATTEN MD [Primary Care Provider] - 7 Days
[2021-09-21] MEDS: PRENATAL VIT27-FE FUMARATE-FOLIC ACID VIT TAB PO SCH (09:43)
[2021-09-21] MEDS: DOCUSATE SODIUM 100 MG CAP PO SCH (09:43)
[2021-09-21 12:59] VITALS: BP 100/69
== END 2021-09-21 12:15 | disposition home or self-care (01) | DRG 774 ==
LOC: 3A 15:02 → UNDOADMIN 15:02 → LD 17:01 → OB 09-20 04:06
PROVIDERS: ADMIT Obstetrics & Gynecology; ATTEND Obstetrics & Gynecology
PROC: 10907ZC Drainage of Amniotic Fluid, Therapeutic from Products of Conception, Via Natural or Artificial Opening (ICD-10-PCS; principal; 2021-09-20)
PROC: 10E0XZZ Delivery of Products of Conception, External Approach (ICD-10-PCS; 2021-09-20)
PROC: 3E0R3BZ Introduction of Anesthetic Agent into Spinal Canal, Percutaneous Approach (ICD-10-PCS; 2021-09-20)
PROC: 00HU33Z Insertion of Infusion Device into Spinal Canal, Percutaneous Approach (ICD-10-PCS; 2021-09-20)
DX: O99.824 Streptococcus B carrier state complicating childbirth (principal); O98.52 Other viral diseases complicating childbirth; B00.9 Herpesviral infection, unspecified; O99.52 Diseases of the respiratory system complicating childbirth; Z20.822 Contact with and (suspected) exposure to COVID-19; J45.909 Unspecified asthma, uncomplicated; Z3A.38 38 weeks gestation of pregnancy; Z37.0 Single live birth
CPT/HCPCS: 36415; 85014; 85018; 85027; 86592; 86850; 86870; 86900; 86901; G0378; J3490; J0290; J2590; J7120; U0003